=== PATIENT | female | born 1955 | race Caucasian/White ===

== ENCOUNTER 2024-09-26 12:06 | Emergency (ER) | payer MEDICARE, SELFPAY ==
[2024-09-26 12:20] VITALS: BP 129/76; PULSE 99; RESP 20; TEMP 37; O2SAT 99; BMI 30.7
--- NOTE | 2024-09-26 13:03 | DI.CT.S_ITS ---
PROCEDURE: CT IVP A/P W/WO INDICATIONS: gross hematuria w clots; dysuria TECHNIQUE: Optional 5 mm thick noncontrast images acquired from the diaphragm to the symphysis pubis. After the administration of intravenous contrast, 5 mm thick images acquired from the diaphragm to the symphysis pubis after a 10-minute delay. 2 mm thick coronal and sagittal reformats were then performed of the kidneys and ureters. For radiation dose reduction, the following was used: automated exposure control, adjustment of mA and/or kV according to patient size. COMPARISON: None. FINDINGS: Image quality: Diagnostic. Kidneys and Ureters: Both kidneys are normal in size, without hydronephrosis or nephrolithiasis. No perinephric fat stranding. 2 mm calcification is seen along the course of the left distal ureter (2/120) near the ureterovesicular junction. There is normal bilateral renal enhancement. Renal calyces appear normal in morphology when filled with contrast. Opacified portions of both ureters demonstrate normal caliber. Small bilateral benign-appearing renal cysts. Bladder: Filling defects are seen in the posterior bladder including a hyperdense likely intraluminal lesion measuring 5.0 x 3.2 x 3.3 cm, compatible with reported blood products. Additionally, at the right posterior bladder there is a filling defect along the bladder wall measuring 2.1 x 1.6 x 2.0 cm. This lesion demonstrates postcontrast enhancement and is suspicious for urothelial neoplasm. No calcified bladder stones. OTHER: Lower chest: Unremarkable. Liver: No solid mass. Gallbladder: No radiopaque gallstones or wall thickening. Biliary ducts: No biliary dilation. Pancreas: No ductal dilation. Spleen: Size is within normal limits. Adrenal Glands: No adrenal nodules. Stomach and Bowel: Moderate to large hiatal hernia. A few scattered diverticula are seen in the colon without signs of acute diverticulitis. Appendix is absent. Peritoneum: No abnormal intraperitoneal fluid. No free air. Ventral Wall: Small fat containing periumbilical hernia. Abdominal Nodes: No retroperitoneal or mesenteric adenopathy by size criteria. Vessels: Aorta and inferior vena cava are normal in size. PELVIS: Pelvic Organs: Unremarkable. Pelvic Nodes: No enlarged lymph nodes. Miscellaneous: Small fat containing inguinal hernias bilaterally. Bones: No aggressive osseous abnormality. IMPRESSION: 1. Enhancing mass along the right posterior bladder wall measuring up to 2.1 cm is suspicious for urothelial neoplasm. Recommend urology follow-up and possible cystoscopy. 2. Hyperdense blood products in the posterior bladder consistent with reported history of hematuria. 3. Possible 2 mm nonobstructing calculus at the left distal ureter versus phlebolith abutting the urothelial wall. No hydronephrosis. Approved by: Collin Calvillo M.D. on 09/26/2024 at 15:34
[2024-09-26 13:04] LABS: Appearance Urine UA CLOUDY; Bilirubin Urine UA NEGATIVE (NEGATIVE); Glucose Urine UA NEGATIVE (Negative); Ketones Urine UA NEGATIVE (NEGATIVE); Leukocyte Esterase Urine UA TRACE (NEGATIVE); Nitrite Urine UA POSITIVE (Negative); Occult Blood Urine UA 3+ (Negative); Protein Urine UA 3+ (Negative)
[2024-09-26 13:06] LABS: Color Urine UA RED
--- NOTE | 2024-09-26 13:11 | ED_ITS ---
<Statement entered by Dixon Ontiveros, DO - 09/27/24 07:23> I did not personally speak with or evaluate the patient, however, I reviewed her labs and imaging results from afar and agree with the plan for discharge home, treatment of possible UTI and the need for a cystoscopy in the Urology clinic to further evaluate concern for a bladder mass. <Statement entered by John Vaz, DO - 09/27/24 07:22> co-sign statement: I was available for consultation during this patient's emergency department visit. This chart is signed by myself for administrative purposes only. I do not have direct contact with the patient during their visit. They were seen independently by the APC. HPI - Female Genitourinary General Chief complaint: Urogenital-Female Stated complaint: Seen at [facility] 2 hours no pee . Time Seen by Provider: 09/26/24 12:51 Mode of arrival: Ambulatory History of Present Illness HPI Narrative: Ms. Bueno is a pleasant 69-year-old female with a past medical history of iron deficiency anemia, anxiety disorder, chronic bronchitis who presents to emergency department with her spouse for bloody urine with clots x 6 days. Patient states on Tuesday she started passing large blood clots in her urine and went to a [facility] walk-in clinic on Tuesday that performed urinalysis that was positive for blood but negative for infection, and she had an outpatient CT scan and blood work performed. She was informed to come to the ER if she developed any new or worsening symptoms, and today she was unable to urinate for approximately 2 hours. Patient is experiencing urgency, frequency and dysuria however she is now having a very difficult time passing the blood clots. She otherwise feels normal and denies abdominal pain, flank pain, fevers, chest pain. She denies a history of similar events but states that in the past she has had a slight amount of hematuria after lifting heavy, but it always went away on its own. Denies a history of kidney stones. No history of smoking. She does have prior appendectomy, occasionally use marijuana, very infrequently drinks alcohol. Her PCP is with [facility] in [facility]. Related Data Previous Rx's ?Medication ?Instructions ?Recorded sulfamethoxazole 800 1 tab PO BID 7 days #14 tabs 06/18/25 mg-trimethoprim 160 mg tablet (Bactrim DS) Allergies Allergy/AdvReac Type Severity Reaction Status Date / Time acetaminophen (From Vicodin) AdvReac Mild Verified 09/26/24 12:21 codeine AdvReac Mild Verified 09/26/24 12:21 hydrocodone (From Vicodin) AdvReac Mild Verified 09/26/24 12:21 meperidine (From Demerol) AdvReac Mild Verified 09/26/24 12:21 Review of Systems Review of Systems ROS Unobtainable: All systems reviewed & are unremarkable except as noted in HPI and below Exam Narrative Exam Narrative: GENERAL: 69 year old patient appears stated age. Well-developed patient, in no acute distress. HEAD: Atraumatic. Normocephalic. NECK: Trachea midline. Cervical ROM intact. CARDIOVASCULAR: Regular rate and rhythm. RESPIRATORY: ?Nonlabored respirations. ?Speaking in clear, full sentences. ?Clear to auscultation. Breath sounds equal bilaterally. No wheezes, rales, or rhonchi. ? GASTROINTESTINAL: Abdomen soft, non-tender, nondistended. BS present. EXTREMITIES: No edema or joint tenderness. BACK: No CVA tenderness. NEURO: AOx3. ?Clear speech. ?Moves all 4 extremities appropriately. SKIN: No rash or erythema of visible areas Initial Vital Signs Initial Vital Signs: Vital Signs Temperature 98.6 F 09/26/24 12:20 Pulse Rate 99 H 09/26/24 12:20 Respiratory Rate 20 09/26/24 12:20 Blood Pressure 129/76 09/26/24 12:20 Pulse Oximetry 99 09/26/24 12:20 Oxygen Delivery Method Room Air 09/26/24 12:20 Course Orders Ordered: ED Orders 09/26/24 12:27 Urinalysis and Microscopic Stat Urine Culture Stat 09/26/24 13:03 CT IVP A/P W/WO Stat 09/26/24 13:11 CK [Creatine Kinase] Stat Complete Blood Count AUTO DIFF Stat Comprehensive Metabolic Panel Stat Lipase Stat PT [Prothrombin Time INR] Stat PTT Partial Thromboplastin Oscar Stat Discontinued Medications Sodium Chloride (Normal Saline 0.9%) 1,000 mls @ 1,000 mls/hr IV BOLUS ONE Stop: 09/26/24 14:08 Last Infusion: 09/26/24 15:40 Dose: Infused Documented By: Admin: 09/26/24 13:41 Dose: 1,000 mls/hr Documented By: CHAYITO Ceftriaxone Sodium 1,000 mg/ (Sodium Chloride) 100 mls @ 200 mls/hr IV NOW ONE Stop: 09/26/24 16:16 Last Infusion: 09/26/24 17:10 Dose: Infused Documented By: CHAYITO(2) Admin: 09/26/24 16:34 Dose: 200 mls/hr Documented By: CHAYITO(2) Vital Signs Vital signs: Vital Signs - 8 hr 09/26/24 12:20 09/26/24 17:26 Temperature 98.6 F Pulse Rate 99 H 84 Respiratory Rate 20 16 Blood Pressure 129/76 127/62 Pulse Oximetry 99 98 Oxygen Delivery Method Room Air Room Air MDM - Female Genitourinary Medical Records Attestation: I reviewed the patient's medical records. Medical records narrative: I reviewed patient's printed information from walk-in clinic on 09/24/2024 Lab Data 09/26/24 13:11 09/26/24 13:11 Labs: Lab Results 09/26/24 09/26/24 Range/Units 12:27 13:11 WBC 7.2 (4.5-11.0) X10^3/uL RBC 3.71 L (4.0-5.2) X10^6/uL Hgb 11.3 L (12.0-16.0) g/dL Hct 33.2 L (36-46) % MCV 89.3 (80-100) fL MCH 30.4 (26-34) PG MCHC 34.0 (30-36) % RDW 14.3 (11.6-14.8) % Plt Count 304 (150-400) X10^3/uL Neut % (Auto) 61.5 (50-75) % Lymph % (Auto) 29.8 (25-40) % Yancey % (Auto) 5.3 (3-14) % Eos % (Auto) 3.2 (2-4) % Baso % (Auto) 0.2 (0-2) % Neut # (Auto) 4400 (1231-4224) /uL Lymph # (Auto) 2100 (6753-7752) /uL Yancey # (Auto) 400 (0-900) /uL Eos # (Auto) 200 (0-450) /uL Baso # (Auto) 0 (0-100) /uL PT 11.3 (9.4-12.5) SECONDS INR 1.0 (0.9-1.3) APTT 35 (25.1-36.5) SECONDS Sodium 137 (137-145) mmol/L Potassium 4.1 (3.4-5.1) mmol/L Chloride 102 (98-107) mmol/L Carbon Dioxide 28 (22-32) mmol/L BUN 19 H (7-17) mg/dL Creatinine 1.07 H (0.52-1.04) mg/dL Estimated GFR 57 L (>60) mL/min BUN/Creatinine Ratio 17.8 (6-22) Glucose 117 H (70-99) mg/dL Calcium 9.2 (8.4-10.2) mg/dL Total Bilirubin 0.5 (0.2-1.3) mg/dL AST 29 (14-36) IU/L ALT 22 (<35) IU/L Alkaline Phosphatase 97 (38-126) U/L Total Creatine Kinase 63 (30-135) U/L Total Protein 7.0 (6.3-8.2) g/dL Albumin 4.4 (3.5-5.0) g/dL Globulin 2.6 (1.7-4.1) g/dL Albumin/Globulin Ratio 1.7 (1.0-2.8) Lipase 88 (23-300) U/L Urine Color Red Urine Appearance Cloudy Urine pH 7.0 (4.5-8.0) Ur Specific Warren 1.020 (1.000-1.035) Urine Protein 3+ H (Negative) Urine Glucose (UA) Negative (Negative) g/dL Urine Ketones Negative (NEGATIVE) Urine Occult Blood 3+ H (Negative) Urine Nitrate Positive H (Negative) Urine Bilirubin Negative (NEGATIVE) Urine Urobilinogen 1.0 (0.2) E.U./dL Ur Leukocyte Esterase Trace H (NEGATIVE) Urine RBC >100/hpf H (0-5/HPF) Urine WBC >100/hpf H (0-5/HPF) Ur Squamous Epith Cells 0-1 /hpf (0-5/HPF) Urine Bacteria Few (2-10) H (None) Ur Culture Indicated? Specimen cultured Vol Urine Centrifuged 10ml (spun) Imaging Data CT scan - abdomen/pelvis: Radiologist's Impression: PROCEDURE: CT IVP A/P W/WO INDICATIONS: gross hematuria w clots; dysuria TECHNIQUE: Optional 5 mm thick noncontrast images acquired from the diaphragm to the symphysis pubis. After the administration of intravenous contrast, 5 mm thick images acquired from the diaphragm to the symphysis pubis after a 10-minute delay. 2 mm thick coronal and sagittal reformats were then performed of the kidneys and ureters. For radiation dose reduction, the following was used: automated exposure control, adjustment of mA and/or kV according to patient size. COMPARISON: None. FINDINGS: Image quality: Diagnostic. Kidneys and Ureters: Both kidneys are normal in size, without hydronephrosis or nephrolithiasis. No perinephric fat stranding. 2 mm calcification is seen along the course of the left distal ureter (2/120) near the ureterovesicular junction. There is normal bilateral renal enhancement. Renal calyces appear normal in morphology when filled with contrast. Opacified portions of both ureters demonstrate normal caliber. Small bilateral benign-appearing renal cysts. Bladder: Filling defects are seen in the posterior bladder including a hyperdense likely intraluminal lesion measuring 5.0 x 3.2 x 3.3 cm, compatible with reported blood products. Additionally, at the right posterior bladder there is a filling defect along the bladder wall measuring 2.1 x 1.6 x 2.0 cm. This lesion demonstrates postcontrast enhancement and is suspicious for urothelial neoplasm. No calcified bladder stones. OTHER: Lower chest: Unremarkable. Liver: No solid mass. Gallbladder: No radiopaque gallstones or wall thickening. Biliary ducts: No biliary dilation. Pancreas: No ductal dilation. Spleen: Size is within normal limits. Adrenal Glands: No adrenal nodules. Stomach and Bowel: Moderate to large hiatal hernia. A few scattered diverticula are seen in the colon without signs of acute diverticulitis. Appendix is absent. Peritoneum: No abnormal intraperitoneal fluid. No free air. Ventral Wall: Small fat containing periumbilical hernia. Abdominal Nodes: No retroperitoneal or mesenteric adenopathy by size criteria. Vessels: Aorta and inferior vena cava are normal in size. PELVIS: Pelvic Organs: Unremarkable. Pelvic Nodes: No enlarged lymph nodes. Miscellaneous: Small fat containing inguinal hernias bilaterally. Bones: No aggressive osseous abnormality. IMPRESSION: 1. Enhancing mass along the right posterior bladder wall measuring up to 2.1 cm is suspicious for urothelial neoplasm. Recommend urology follow-up and possible cystoscopy. 2. Hyperdense blood products in the posterior bladder consistent with reported history of hematuria. 3. Possible 2 mm nonobstructing calculus at the left distal ureter versus phlebolith abutting the urothelial wall. No hydronephrosis. Approved by: Collin Calvillo M.D. on 09/26/2024 at 15:34 MDM Narrative Medical decision making narrative: 69-year-old female with a past medical history of iron deficiency anemia, anxiety disorder, chronic bronchitis who presents to emergency department with her spouse for bloody urine with clots x 6 days. Differential diagnosis includes but is not limited to malignancy, bladder polyp, bladder tumor, bladder hyperplasia, UTI, nephrolithiasis, ureterolithiasis, bladder outlet obstruction, anemia, etc. On exam the patient is in no acute distress, nontoxic appearing, vital signs all within normal limits except for mildly elevated heart rate of 99. Patient's urine reveals gross hematuria, she feels as though she is unable to pass a clot. Abdomen soft and nontender. We will obtain CT abdomen pelvis hematuria protocol, CBC, CMP, lipase, coags, urinalysis and treat with fluids. Postvoid residual bladder scan approximately 269 mL, discussed case with attending ER physician who advises holding off on urinary catheter until CT scan results. Labs compared to 09/24/2024 on patient's phone. Today her WBC count is 7.2, hemoglobin is 11.3 (was 11.4). Platelets 304. Normal PT, INR, PTT. Normal electrolytes with a sodium 137 potassium 4.1. BUN is 19 creatinine is 1.07 (BUN 16 Cr 1.0 two days ago). Glucose 117. Normal LFTs. Normal CK 63. Urinalysis reveals occult blood, nitrite positive, greater than 100 RBCs, greater than 100 WBCs, specimen was cultured. Around 1500 patient called me into her room and showed me that she was able to pass a large urinary clot in the toilet with great relief. She is urinating without difficulty. 1628: Discussed case with urologist Dr. Ontiveros. He recommends antibiotics and having patient follow up in the office for likely cystoscopy if she is stable/safe for discharge. Patient is very happy with this plan and would like to go home. We will treat with 1 g of ceftriaxone in the ED followed by Bactrim b.i.d. x7 days. Discussed follow up with PCP, urology. Discussed strict ED return precautions. Patient verbalized understanding all information and is agreeable to the plan, all questions answered. She is stable for discharge home all vital signs within normal limits. Discharge Plan Departure Patient Disposition: Home Clinical Impression: Mass of bladder, Acute UTI Hematuria Qualifiers: Hematuria type: gross Qualified Code(s): R31.0 - Gross hematuria Instructions: DI for Urinary Tract Infection (UTI), DI for Hematuria Activity Restrictions/Additional Instructions: Dear Ms. Bueno, Thank you for coming to the emergency department. Today you were evaluated for blood in your urine. A CT scan of your abdomen and pelvis revealed findings concerning for a bladder mass, in addition to blood products in the bladder. Your urine test did show signs of infection. I have discussed your case with our urologist, Dr. Ontiveros, and it is very important that you follow up with him for further management. Please complete the full course of antibiotics. Please increase hydration and avoid holding your bladder. Please return to ER if you develop fevers, severe pain, lightheadedness, dizziness, inability to urinate or any other concerns. Please follow up with your primary care doctor within the next 2-3 days for ER follow-up. (If you do not have a PCP you can call [phone]. ?to schedule an appointment with an [facility] Primary Care Provider) IF YOU DEVELOP ANY NEW OR WORSENING SYMPTOMS, RETURN TO THE ER! Please read the attached instructions, they highlight more specific treatments and interventions for you at home. Thank you for letting me participate in your care, Clementine Henry PA-C Prescriptions: New sulfamethoxazole-trimethoprim [Bactrim DS] 800-160 mg tablet 1 tab PO BID 7 Days Qty: 14 0RF Referrals: Dixon Ontiveros DO [Physician, Urology] Referral Note: 69 yo F, new findings of bladder mass w/ gross hematuria & UTI Stand Alone Forms: Patient Portal/API
[2024-09-26 13:13] LABS: Bacteria Urine Few (2-10); Culture Indicated Urine Specimen Cultured; RBC Urine >100/HPF (0-5/HPF); Squamous Epithelial Cell Urine 0-1 /HPF (0-5/HPF); Urine Volume 10mL (spun); WBC Urine >100/HPF (0-5/HPF)
[2024-09-26 13:19] LABS: Add Manual Diff / Slide Review NO; Basophils Absolute Auto 0 /uL (0-100); Basophils Percent Auto 0.2 % (0-2); Eosinophils Absolute Auto 200 /uL (0-450); Eosinophils Percent Auto 3.2 % (2-4); Hematocrit 33.2 % (36-46); Hemoglobin 11.3 g/dL (12.0-16.0); Lymphocytes Absolute Auto 2100 /uL (1100-4500); Lymphocytes Percent Auto 29.8 % (25-40); Mean Corpuscular Hemoglobin 30.4 PG (26-34); Mean Corpuscular Volume 89.3 fL (80-100); Monocytes Absolute Auto 400 /uL (0-900); Monocytes Percent Auto 5.3 % (3-14); Neutrophils Absolute Auto 4400 /uL (1500-7000); Neutrophils Percent Auto 61.5 % (50-75); Platelet Count 304 X10^3/uL (150-400); Red Blood Cell Count 3.71 X10^6/uL (4.0-5.2); Red Cell Distribution Width 14.3 % (11.6-14.8); White Blood Cell Count 7.2 X10^3/uL (4.5-11.0)
[2024-09-26 13:29] LABS: Prothrombin Time 11.3 SECONDS (9.4-12.5)
[2024-09-26 13:31] LABS: PTT Partial Thromboplastin Tim 35 SECONDS (25.1-36.5)
[2024-09-26 13:33] LABS: Alanine Aminotransferase 22 IU/L (<35); Albumin 4.4 g/dL (3.5-5.0); Albumin Globulin Ratio 1.7 (1.0-2.8); Alkaline Phosphatase 97 U/L (38-126); Aspartate Aminotransferase 29 IU/L (14-36); BUN Creatinine Ratio 17.8 (6-22); Bilirubin Total 0.5 mg/dL (0.2-1.3); Blood Urea Nitrogen 19 mg/dL (7-17); Calcium 9.2 mg/dL (8.4-10.2); Carbon Dioxide 28 mmol/L (22-32); Chloride 102 mmol/L (98-107); Creatine Kinase 63 U/L (30-135); Estimated Glomerular Filt Rate 57 mL/min (>60); Globulin 2.6 g/dL (1.7-4.1); Glucose 117 mg/dL (70-99); HEMOLYSIS 16 (0-50); Lipase 88 U/L (23-300); Potassium 4.1 mmol/L (3.4-5.1); Sodium 137 mmol/L (137-145)
[2024-09-26] MEDS: SODIUM CHLORIDE 0.9% 1,000 ML 1000 ML IV (13:41)
[2024-09-26] MEDS: cefTRIAXone 1,000 MG in SODIUM CHLORIDE 0.9% 100 ML 200 MG IV (16:34)
[2024-09-26 17:26] VITALS: BP 127/62; PULSE 84; RESP 16; O2SAT 98
== END 2024-09-26 17:20 | disposition home or self-care (01) ==
PROVIDERS: Emergency Provider Physician Assistant
DX: R31.0 Gross hematuria (principal); N39.0 Urinary tract infection, site not specified; N32.89 Other specified disorders of bladder
CPT/HCPCS: 36415; 51798; 74178; 80053; 81001; 82550; 83690; 85025; 85610; 85730; 87086; 96361; 96365; 99284; J0696; Q9967

== ENCOUNTER → 2024-10-15 11:43 | Outpatient (CLI) | payer MEDICARE, SELFPAY | PROVIDERS: PCP Physician Assistant; Visit Provider Urology | DX: Z01.818 Encounter for other preprocedural examination (principal); R31.0 Gross hematuria; N32.89 Other specified disorders of bladder; R39.9 Unspecified symptoms and signs involving the genitourinary system | CPT/HCPCS: 52000; 81002; 87086; 99214 ==

== ENCOUNTER 2024-10-26 08:41 | Day surgery (SDC) | payer MEDICARE, SELFPAY ==
[2024-10-24 10:35] VITALS: BMI 30.7
[2024-10-24 11:57] VITALS: BMI 30.7
[2024-10-26] VITALS (11 sets, daily range): BP systolic 114–128; BP diastolic 64–78; PULSE 70–79; RESP 9–17; TEMP 35.9–36.2; O2SAT 91–100; BMI 30.7
--- NOTE | 2024-10-26 | PATH_ITS ---
[facility] Accession Number: [id number] No. of containers..02 Tissue . 01 Material submitted: . PART A: bladder - BLADDER MASS PART B: body - DEEP MARGINS . 01 Diagnosis: A. BLADDER MASS, TRANSURETHRAL REESCTION OF BLADDER TUMOR: Papillary urothelial carcinoma, non-invasive. . Specimen Procedure: Transurethral resection of bladder tumor (TURBT). . Tumor Tumor site: Right posterior bladder wall per operative report. Histologic type: Papillary urothelial carcinoma, non-invasive. Histologic grade: Low grade. Tumor extent: Non-invasive papillary carcinoma. Lymphatic and/or vascular invasion: Not identified. Lamina propria: Negative for invasive tumor. Muscularies propria: Not identified. . B. DEEP MARGINS: Detached fragments of papillary urothelial carcinoma, low grade. Muscularis propria is present in the biopsy. Muscularis propria is negative for tumor. [facility] 11/05/2024 1501 Local . 01 Comment: This case is also reviewed by Dr. Lou Sandoval, who agrees with the interpretation. . 01 Electronically signed: . Bruna Chacko MD, Pathologist NPI- [id number] . 01 Gross description: . Part A: BLADDER MASS: Received in formalin are multiple fragment of bray soft tissue measuring 4.0 x 3.5 x 0.4 cm in aggregate. Specimen is submitted in its entirety in 4 cassettes. Part B: DEEP MARGINS: Received in formalin are 4 fragment(s) of bray, soft tissue measuring 0.2 x 0.2 x 0.2 cm to 0.9 x 0.5 x 0.4 cm submitted entirely in 1 cassette(s) /KELLY 11/01/2024 2101 Local . 01 Pathologist provided ICD-10: N32.89 . 01 CPT . 169871, [id number] Specimen Comment: A courtesy copy of this report has been sent to [facility] Pathology Performed at: [address] [address], [place], [place] [id number] MD Bakari Mojica MD Phone: [phone]
--- NOTE | 2024-10-26 09:38 | PM.PREOP ---
Pre-operative Note COVID-19 COVID-19 status: Not tested Interval Note History & Physical reviewed/Exam performed by Physician: Yes Changes to H&P: No
[2024-10-26] MEDS: levoFLOXacin 500 MG/100 ML PIGGYBACK 100 MG IV (09:47)
--- NOTE | 2024-10-26 10:15 | SUR.OPER ---
Lithotomy on padded OR bed, head on pillow, right arm secured on padded arm boards at <90 degrees abduction, left arm tucked with gel pad. Legs secured in padded yellow fins stirrups.
--- NOTE | 2024-10-26 10:58 | PM.OP.1 ---
Operative Date/Time/Diagnoses Date of procedure: 10/26/24 Time of procedure: 10:00 Pre-op diagnosis: Bladder mass Post-op diagnosis: same Procedure & Clinicians Procedure: Cystoscopy Transurethral resection of bladder tumor Same procedure(s) as scheduled: Yes Indications: 69 y/o F confirmed to have a 3cm mass concerning for urothelial cell carcinoma along her right posterior bladder wall. Discussed risks of the procedure to include but not limited to pain, bleeding, infection, injury to urethra/prostate/bladder/ureteral orifice, need for a ureteral stent, prolonged catheterization, and possible open repair of ureteral and/or bladder injury. She indicated understanding and signed inform consent today in clinic. Surgeon: Dixon Ontiveros Click Yes if Unassisted: Yes Anesthesia Type: General Operative Notes Findings: 3cm papillary mass concerning for urothelial cell carcinoma along right posterior bladder wall Closure Type: not applicable Specimen(s): other (bladder mass, deep margins) Applied: catheter Estimated Blood Loss (mL): 20 Blood products transfused: none Procedure in detail: Patient was identified in the preoperative holding area and consent confirmed. She was then brought to the operating room where general anesthesia was induced. She was then placed in the low lithotomy position. She was then prepped and draped in the usual sterile fashion. A surgical timeout was conducted and all were in agreement. Access to the bladder was obtained via a 21Fr cystoscope. Complete cystoscopy was then performed using a 30 and 70 degree lens. A 3cm papillary mass was noted immediately posterior and lateral to her right ureteral orifice. Bilateral ureteral orifices were visualized and noted to be orthotopic in nature. No other concerning lesions were appreciated. The cystoscope was then removed and the 26Fr resectoscope with visual obturator was then advanced through her urethra and into her bladder. The working element with Gyrus loop was then assembled and passed through the resectoscope and into the bladder. The mass was then resected to its base. The resection bed was then fulgurated. The right ureteral orifice was left intact throughout the procedure and clear efflux was appreciated at case end. All bladder specimens were then manually evacuated from the bladder using the resectoscope. Hemostasis was evaluated and noted to be excellent at case end. A 16Fr santoro was then inserted into the bladder at case end, 10cc of sterile water was used for balloon insufflation. Anesthesia was reversed, she was extubated in the OR and transferred to the PACU in stable condition for recovery. Complications: none Post-operative Condition: stable Disposition: PACU Plan for aftercare: Discharge home from PACU. Will return to Urology clinic for a voiding trial on 29 October 2024.
[2024-10-26] MEDS: LACTATED RINGERS 1,000 ML 21 ML IV (11:16)
== END 2024-10-26 13:00 | disposition home or self-care (01) ==
PROVIDERS: PCP Physician Assistant; Referring Provider Urology; Visit Provider Urology
PROC: 0TBB8ZZ Excision of Bladder, Via Natural or Artificial Opening Endoscopic (ICD-10-PCS; CPT 52235; principal; 2024-10-26 10:45)
DX: C67.9 Malignant neoplasm of bladder, unspecified (principal)
CPT/HCPCS: 52235; 82962; J1100; J1956; J2405; J2704; J3010; J3490